=== PATIENT | male | born 1990 | race Caucasian/White ===

== ENCOUNTER 2016-08-30 01:11 | Emergency (ER) | payer BC ==
[2016-08-30 01:31] VITALS: BP 126/85
[2016-08-30] MEDS ORDERED: Metoclopramide 10 MG/2 ML SDV IVPUSH ONE (01:50)
[2016-08-30] MEDS ORDERED: HYDROmorphone 0.5 MG/0.5 ML Syringe IVPUSH ONE (01:51)
--- NOTE | 2016-08-30 01:52 | EDM.PDOC ---
ED HPI GI/ABDOMINAL - General Chief Complaint: Gastrointestinal Problem Stated Complaint: NAUSEA VOMITING Time Seen by Provider: 08/30/16 01:49 Source of Information: Reports: Patient, Family () History Limitations: Reports: No limitations - History of Present Illness INITIAL COMMENTS - FREE TEXT/NARRATIVE: 26-year-old male presents the ED with a history of intractable nausea and vomiting the last 4 hours. Patient states that he was out celebrating week but last night had 4 drinks 4 hours and soon as he got home he started having nausea and vomiting. He vomited up his anemia which is about 2030 hours last night. Subsequent it's been bilious emesis and dry heaves. Pain in the upper abdomen is mostly from vomiting. It does not radiate through to his back. There is no blood in the emesis. Interestingly he reports this seems to happen every time he has a few drinks of alcohol. Last time this occurred was about two years ago. He has no diarrhea ,fever or chills. No previous abdominal surgeries. Symptom Onset Date: 08/29/16 Symptom Onset Time: 22:00 Timing/Duration: Reports: Hour(s):, Gradual onset Location: other (Mostly epigastric pain discomfort.) Quality: Reports: ache, burning, stabbing Severity: moderate Improves with: Reports: vomiting Context: Reports: other (Drank alcohol last evening x4 drinks. Mostly hard apple cider.). Denies: sick contact, bad/questionable food, out of country travel, recent surgery, recent trauma, lifting, activity/exercise Associated Symptoms: Reports: loss of appetite, nausea/vomiting. 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) - Related Data Allergies/ADRs: Allergies Allergy/AdvReac Type Severity Reaction Status Date / Time No Known Allergies Allergy Verified 08/30/16 01:20 Home Meds: Home Meds Celecoxib [CeleBREX] 200 mg PO BID 12/03/14 [History] Hydrocodone/Acetaminophen [Hydrocodon-Acetaminoph 7.5-325] 1 tab PO Q4HR PRN [History] Penicillin V Potassium [Veetids] 500 mg PO TID 12/03/14 [History] Ondansetron [Zofran ODT] 4 mg PO Q6H #5 tab.dis 08/30/16 [Rx] Past Medical History - Past Health History Medical/Surgical History: Denies Medical/Surgical History Social & Family History - Tobacco Use Smoking Status *Q: Never Smoker Years of Tobacco use: 6 - Caffeine Use Caffeine Use: Reports: Soda - Recreational Drug Use Recreational Drug Use: No - Living Situation & Occupation Living situation: Reports: Occupation: employed ED ROS GENERAL - Review of Systems Review Of Systems: See Below Constitutional: Reports: chills, malaise, weakness, decreased appetite. Denies : fever, fatigue, weight loss HEENT: Reports: No symptoms Respiratory: Reports: No Symptoms Cardiovascular: Reports: No symptoms Endocrine: Reports: no symptoms GI/Abdominal: Reports: Abdominal pain (Mostly epigastric and mostly from vomiting so much.), Nausea, Vomiting : Reports: no symptoms Musculoskeletal: Reports: no symptoms Skin: Reports: no symptoms Neurological: Reports: No Symptoms Psychiatric: Reports: No symptoms Hematologic/Lymphatic: Reports: no symptoms Immunologic: Reports: no symptoms ED EXAM, GI/ABD - Physical Exam Exam: See Below Exam Limited By: No limitations General Appearance: alert, WD/WN, no apparent distress, other (Slightly pallid.) Eyes: bilateral: normal appearance Throat/Mouth: Normal inspection, Normal lips, Normal teeth, Normal oropharynx Head: atraumatic, normocephalic Neck: normal inspection, supple, non-tender, full range of motion Respiratory/Chest: no respiratory distress, lungs clear, normal breath sounds, no accessory muscle use Cardiovascular: normal peripheral pulses, regular rate, rhythm, no edema, no murmur GI/Abdominal: normal bowel sounds, soft, non tender, no organomegaly, no distention, no abnormal bruit, no mass Back Exam: normal inspection, full range of motion. No: CVA tenderness (L), CVA tenderness (R) Extremities: normal inspection, normal range of motion, non-tender, no pedal edema, normal capillary refill Neurological: oriented, CN II-XII intact, normal cognition, normal gait, normal reflexes, no motor/sensory deficits Psychiatric: normal affect, normal mood Skin Exam: Warm, Dry, Intact, Normal color, No rash, Pallor (Mild) Course - Vital Signs Last Recorded V/S: Last Vital Signs Temp 36.6 C 08/30/16 01:21 Pulse 65 08/30/16 01:21 Resp 16 08/30/16 01:21 BP 126/85 08/30/16 01:21 Pulse Ox 94 L 08/30/16 01:21 - Orders/Labs/Meds Labs: Laboratory Tests 08/30/16 08/30/16 Range/Units 01:50 01:50 WBC 9.15 H (4.23-9.07) K/mm3 RBC 4.54 L (4.63-6.08) M/mm3 Hgb 13.4 L (13.7-17.5) gm/L Hct 38.4 L (40.1-51.0) % MCV 84.6 (79.0-92.2) fl MCH 29.5 (25.7-32.2) pg MCHC 34.9 (32.2-35.5) g/dl RDW Std Deviation 39.7 (35.1-43.9) fL Plt Count 241 (163-337) K/mm3 MPV 8.8 L (9.4-12.3) fl Neutrophils % (Manual) 77 H (40-60) % Band Neutrophils % 0 (0-10) % Lymphocytes % (Manual) 18 L (20-40) % Atypical Lymphs % 0 % Monocytes % (Manual) 4 (2-10) % Eosinophils % (Manual) 1 (0.8-7.0) % Basophils % (Manual) 0 L (0.2-1.2) Platelet Estimate Adequate Plt Morphology Comment Normal RBC Morph Comment Normal Sodium 141 (136-145) mEq/L Potassium 4.0 (3.5-5.1) mEq/L Chloride 104 (98-107) mEq/L Carbon Dioxide 26 (21-32) mEq/L Anion Gap 15.0 (5-15) BUN 7 (7-18) mg/dL Creatinine 0.9 (0.7-1.3) mg/dL Est Cr Clr Drug Dosing TNP Estimated GFR (MDRD) > 60 (>60) mL/min BUN/Creatinine Ratio 7.8 L (14-18) Glucose 109 H (74-106) mg/dL Calcium 9.2 (8.5-10.1) mg/dL Total Bilirubin 2.9 H (0.2-1.0) mg/dL AST 19 (15-37) U/L ALT 19 (16-63) U/L Alkaline Phosphatase 55 (46-116) U/L C-Reactive Protein < 0.2 (<1.0) mg/dL Total Protein 7.7 (6.4-8.2) g/dl Albumin 4.6 (3.4-5.0) g/dl Globulin 3.1 gm/dL Albumin/Globulin Ratio 1.5 (1-2) Lipase 103 (73-393) U/L Meds: Medications Discontinued Medications Generic Name Dose Route Start Last Admin Trade Name Ashishq PRN Reason Stop Dose Admin Hydromorphone HCl 0.5 mg 08/30/16 01:51 08/30/16 02:07 Dilaudid IVPUSH 08/30/16 01:52 0.5 mg ONETIME ONE Administration Dextrose/Sodium Chloride 1,000 mls @ 999 mls/hr 08/30/16 02:00 08/30/16 02:12 Dextrose 5%-Normal Saline IV 999 mls/hr ASDIRECTED AMIRA Administration Metoclopramide HCl 7.5 mg 08/30/16 01:50 08/30/16 02:05 Reglan IVPUSH 08/30/16 01:51 7.5 mg ONETIME ONE Administration - Radiology Interpretation Free Text/Narrative:: 26-year-old male presents to the ED with intractable nausea and vomiting after being out for the evening last evening. He states he often develops spontaneous nausea and vomiting after having any kind of alcohol orally. He had 4 drinks of hard to couple spider last evening with his supper meal and started vomiting about 2200 hours. 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 No diarrhea. Does have diffuse epigastric pain and discomfort which is relieved by vomiting. He reports she's had upper GI endoscopy before has no peptic ulcer disease. I see from his med list that routine labs to include a serum lipase. 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 Plan IV D5 normal saline and opened. Given Reglan 7.5 mg IV Dilaudid 0.5 mg IV. - Re-Assessments/Exams Free Text/Narrative Re-Assessment/Exam: 08/30/16 02:30 patient reports nausea is much improved. He still had about 300 mils of fluid however. Objective at least 800 mils of the IV fluid. 08/30/16 02:31 l Lab work is essentially normal other than a bilirubin of 2.9. This would suggest that his Gilbert`s syndrome and a slow metabolism of bilirubin. I'm not sure if this is linked to intolerance to alcohol. 08/30/16 03:29 he has completed a full liter of IV fluids. He is feeling much improved. He'll be discharged home with 5 tablets of Zofran 4 mg sublingually to be used when necessary for nausea and vomiting relief. Utilized the [employer] machine for this as well. Discharged home in care of his . Departure - Departure Time of Disposition: 03:28 Disposition: Home, Self-Care 01 Condition: fair Clinical Impression: Gilbert syndrome Nausea and vomiting Qualifiers: Vomiting type: bilious vomiting Qualified Code(s): R11.14 - Bilious vomiting Prescriptions: Ondansetron [Zofran ODT] 4 mg PO Q6H #5 tab.dis Instructions: Nausea and Vomiting, Adult Referrals: Yeny Claros PA-C [Primary Care Provider] - Forms: ED Department Discharge Additional Instructions: Evaluation in the emergency department tonight in regards to intractable nausea and vomiting starting at 2200 hours last evening. As you suggested he seemed to current time he tried to drink any form of alcohol. Psych you are intolerant to the alcohol itself and no matter what formic comes in. Lab work done revealed an elevated serum bilirubin at 2.6 suggesting that you have a disorder called Gilbert`s syndrome. Dysphagia bilirubin is elevated at all times when you have your lab work checked. It means that you have a enzyme deficiency inability to break down bilirubin as fast as normal person. He is not aware by any means. I am unclear if there is an association between Gilbert syndrome and intolerance to alcohol use. Some people do black the enzyme to break down alcohol which is found in the liver of course. Penetrated with a liter of IV fluids while in the ED and medication Reglan 7.5 mg and Dilaudid 0.5 mg IV for nausea and vomiting and pain relief. Given a prescription for Zofran 4 mg tablet to be taken under the tongue when needed and can be taken up to every 6 hours to stop nausea and vomiting case this happens to you in the future. It may prevent you from having to come to the hospital.
[2016-08-30] MEDS ORDERED: Dextrose 5%-0.9% NaCl 1,000 ML IV SCH (02:00)
== END 2016-08-30 03:45 | disposition home or self-care (01) ==
LOC: JD.ED 01:11
DX: E80.4 Gilbert syndrome (principal)
CPT/HCPCS: 36415; 80053; 83690; 85025; 86140; 96361; 96374; 96375; 99284; J1170; J2765; J7042

== ENCOUNTER 2017-01-25 21:52 | Emergency (ER) | payer BC ==
[2017-01-25] MEDS ORDERED: Metoclopramide 10 MG/2 ML SDV IVPUSH STA (22:29)
[2017-01-25] MEDS ORDERED: Sodium Chloride 0.9% 1,000 ML IV ONE (22:29)
--- NOTE | 2017-01-25 22:45 | EDM.PDOC ---
ED HPI GENERAL MEDICAL PROBLEM - General Chief Complaint: Gastrointestinal Problem Stated Complaint: NAUSEA Time Seen by Provider: 01/25/17 22:09 Source of Information: Reports: Patient, RN Notes Reviewed History Limitations: Reports: No Limitations - History of Present Illness INITIAL COMMENTS - FREE TEXT/NARRATIVE: The patient states that he and his have been visiting family in [place], [place] since this past , 01/22/2017. The patient states that he developed nausea and vomiting, along with some epigastric discomfort, last night around 22 :00, shortly after learning that their 3-year-old dog was run over and killed in their absence. No recent fever or diarrhea. He states that he and his flew in from [place] this morning. He took 2 tablets of Dramamine 50 mg prior to getting on his first flight, then 2 more tablets about 2.5 hours later. He states that the Dramamine did seem to help. He then took 4 mg Zofran around 19: 30 tonight, which has not helped. The patient does not recall eating any spoiled food. No recent antibiotics. None of the patient's contacts have been similarly ill. The patient states that he has had similar episodes in the past, when he drinks alcohol, however, he states that he has not had any alcohol since 08/30/2016. He states that he underwent an EGD about 2 years ago, which was negative. The patient's PCP is Yeny Claros. 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: zofran, dramamine epigastric Pain Score (Numeric/FACES): 3 - Related Data Allergies Allergy/AdvReac Type Severity Reaction Status Date / Time No Known Allergies Allergy Verified 01/25/17 22:12 Home Meds: Home Meds Ondansetron [Zofran ODT] 4 mg PO Q6H #5 tab.dis 08/30/16 [Rx] Dimenhydrinate [Dramamine] 50 mg PO ASDIRECTED PRN 01/25/17 [History] Past Medical History - Past Surgical History HEENT Surgical History: Reports: Oral Surgery ([place] teeth extraction) GI Surgical History: Reports: EGD Social & Family History - Family History Family Medical History: Noncontributory - Tobacco Use Tobacco Use Within Last Twelve Months: Smokeless Tobacco (Chews about 1/2 can per day x 7 years) - Caffeine Use Caffeine Use: Reports: Soda - Alcohol Use Alcohol Use History: Yes Date/Time of Last Drink Comment: 08/30/2016 - Recreational Drug Use Recreational Drug Use: No - Living Situation & Occupation Living situation: Reports: , with Spouse 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) ED ROS GENERAL - Review of Systems Review Of Systems: See Below Constitutional: Reports: No Symptoms HEENT: Reports: No Symptoms Respiratory: Reports: No Symptoms Cardiovascular: Reports: No Symptoms Endocrine: Reports: No Symptoms GI/Abdominal: Reports: No Symptoms : Reports: No Symptoms Musculoskeletal: Reports: No Symptoms Skin: Reports: No Symptoms Neurological: Reports: No Symptoms Psychiatric: Reports: No Symptoms Hematologic/Lymphatic: Reports: No Symptoms Immunologic: Reports: No Symptoms ED EXAM, GI/ABD - Physical Exam Exam: See Below Exam Limited By: No Limitations General Appearance: Alert, WD/WN, No Apparent Distress Ears: Normal External Exam, Hearing Grossly Normal Nose: Normal Inspection, No Blood Throat/Mouth: Normal Inspection, Normal Lips, Normal Voice, No Airway Compromise Head: Atraumatic, Normocephalic Neck: Normal Inspection, Full Range of Motion Respiratory/Chest: No Respiratory Distress, Lungs Clear, Normal Breath Sounds, No Accessory Muscle Use Cardiovascular: Normal Peripheral Pulses, Regular Rate, Rhythm, No Gallop, No JVD, No Murmur, No Rub GI/Abdominal Exam: Normal Bowel Sounds, Soft, No Organomegaly, No Distention, No Abnormal Bruit, No Mass, Pelvis Stable, Tender (Epigastric region only, mild. Nontender elsewhere.) (Male) Exam: Deferred Rectal (Males) Exam: Deferred Back Exam: Normal Inspection, Full Range of Motion, NT Extremities: Normal Inspection, Normal Range of Motion, No Pedal Edema, Normal Capillary Refill Neurological: Alert, Oriented, Normal Cognition, No Motor/Sensory Deficits Psychiatric: Normal Affect, Normal Mood Skin Exam: Warm, Dry, Intact, Normal Color, No Rash Lymphatic: No Adenopathy Course - Vital Signs Last Recorded V/S: Last Vital Signs Temp 36.7 C 01/25/17 22:00 Pulse 57 L 01/25/17 22:00 Resp 18 01/25/17 22:00 BP 134/85 01/25/17 22:00 Pulse Ox 99 01/25/17 22:00 - Orders/Labs/Meds Labs: Laboratory Tests 01/25/17 01/25/17 01/25/17 Range/Units 22:45 22:45 22:45 WBC 11.60 H (4.23-9.07) K/mm3 RBC 4.49 L (4.63-6.08) M/mm3 Hgb 13.6 L (13.7-17.5) gm/L Hct 39.1 L (40.1-51.0) % MCV 87.1 (79.0-92.2) fl MCH 30.3 (25.7-32.2) pg MCHC 34.8 (32.2-35.5) g/dl RDW Std Deviation 41.6 (35.1-43.9) fL Plt Count 244 (163-337) K/mm3 MPV 9.0 L (9.4-12.3) fl Neutrophils % (Manual) 77 H (40-60) % Band Neutrophils % 0 (0-10) % Lymphocytes % (Manual) 15 L (20-40) % Atypical Lymphs % 3 % Monocytes % (Manual) 4 (2-10) % Eosinophils % (Manual) 0 L (0.8-7.0) % Basophils % (Manual) 1 (0.2-1.2) Toxic Granulation 1+ slight Platelet Estimate Adequate Plt Morphology Comment Normal Poikilocytosis 1+ slight Anisocytosis 1+ slight Microcytosis 1+ slight Macrocytosis 1+ slight Tear Drop Cells 1+ slight RBC Morph Comment Abnormal Sodium 142 (136-145) mEq/L Potassium 3.7 (3.5-5.1) mEq/L Chloride 105 (98-107) mEq/L Carbon Dioxide 29 (21-32) mEq/L Anion Gap 11.7 (5-15) BUN 9 (7-18) mg/dL Creatinine 1.1 (0.7-1.3) mg/dL Est Cr Clr Drug Dosing 92.37 mL/min Estimated GFR (MDRD) > 60 (>60) mL/min BUN/Creatinine Ratio 8.2 L (14-18) Glucose 113 H (74-106) mg/dL Calcium 9.8 (8.5-10.1) mg/dL Total Bilirubin 3.4 H (0.2-1.0) mg/dL AST 18 (15-37) U/L ALT 18 (16-63) U/L Alkaline Phosphatase 52 (46-116) U/L Total Protein 8.1 (6.4-8.2) g/dl Albumin 4.9 (3.4-5.0) g/dl Globulin 3.2 gm/dL Albumin/Globulin Ratio 1.5 (1-2) Lipase 110 (73-393) U/L Urine Color Yellow (Yellow) Urine Appearance Clear (Clear) Urine pH 7.0 (5.0-8.0) Ur Specific [place] 1.020 (1.005-1.030) Urine Protein 1+ H (Negative) Urine Glucose (UA) Negative (Negative) Urine Ketones Negative (Negative) Urine Occult Blood Negative (Negative) Urine Nitrite Negative (Negative) Urine Bilirubin 1+ H (Negative) Urine Urobilinogen 0.2 (0.2-1.0) Ur Leukocyte Esterase Negative (Negative) Urine RBC 0-5 (0-5) /hpf Urine WBC 0-5 (0-5) /hpf Ur Epithelial Cells Not seen (0-5) /hpf Urine Bacteria Few (FEW) /hpf Urine Mucus Many H (FEW) /hpf Urine Opiates Screen (NEGATIVE) Ur Buprenorphine Scrn (NEGATIVE) Ur Oxycodone Screen (NEGATIVE) Urine Methadone Screen (NEGATIVE) Ur Propoxyphene Screen (NEGATIVE) Ur Barbiturates Screen (NEGATIVE) Ur Tricyclics Screen (NEGATIVE) Ur Phencyclidine Scrn (NEGATIVE) Ur Amphetamine Screen (NEGATIVE) U Methamphetamines Scrn (NEGATIVE) U Benzodiazepines Scrn (NEGATIVE) U Cocaine Metab Screen (NEGATIVE) U Marijuana (THC) Screen (NEGATIVE) 01/25/17 Range/Units 22:45 WBC (4.23-9.07) K/mm3 RBC (4.63-6.08) M/mm3 Hgb (13.7-17.5) gm/L Hct (40.1-51.0) % MCV (79.0-92.2) fl MCH (25.7-32.2) pg MCHC (32.2-35.5) g/dl RDW Std Deviation (35.1-43.9) fL Plt Count (163-337) K/mm3 MPV (9.4-12.3) fl Neutrophils % (Manual) (40-60) % Band Neutrophils % (0-10) % Lymphocytes % (Manual) (20-40) % Atypical Lymphs % % Monocytes % (Manual) (2-10) % Eosinophils % (Manual) (0.8-7.0) % Basophils % (Manual) (0.2-1.2) Toxic Granulation Platelet Estimate Plt Morphology Comment Poikilocytosis Anisocytosis Microcytosis Macrocytosis Tear Drop Cells RBC Morph Comment Sodium (136-145) mEq/L Potassium (3.5-5.1) mEq/L Chloride (98-107) mEq/L Carbon Dioxide (21-32) mEq/L Anion Gap (5-15) BUN (7-18) mg/dL Creatinine (0.7-1.3) mg/dL Est Cr Clr Drug Dosing mL/min Estimated GFR (MDRD) (>60) mL/min BUN/Creatinine Ratio (14-18) Glucose (74-106) mg/dL Calcium (8.5-10.1) mg/dL Total Bilirubin (0.2-1.0) mg/dL AST (15-37) U/L ALT (16-63) U/L Alkaline Phosphatase (46-116) U/L Total Protein (6.4-8.2) g/dl Albumin (3.4-5.0) g/dl Globulin gm/dL Albumin/Globulin Ratio (1-2) Lipase (73-393) U/L Urine Color (Yellow) Urine Appearance (Clear) Urine pH (5.0-8.0) Ur Specific [place] (1.005-1.030) Urine Protein (Negative) Urine Glucose (UA) (Negative) Urine Ketones (Negative) Urine Occult Blood (Negative) Urine Nitrite (Negative) Urine Bilirubin (Negative) Urine Urobilinogen (0.2-1.0) Ur Leukocyte Esterase (Negative) Urine RBC (0-5) /hpf Urine WBC (0-5) /hpf Ur Epithelial Cells (0-5) /hpf Urine Bacteria (FEW) /hpf Urine Mucus (FEW) /hpf Urine Opiates Screen Negative (NEGATIVE) Ur Buprenorphine Scrn Negative (NEGATIVE) Ur Oxycodone Screen Negative (NEGATIVE) Urine Methadone Screen Negative (NEGATIVE) Ur Propoxyphene Screen Negative (NEGATIVE) Ur Barbiturates Screen Negative (NEGATIVE) Ur Tricyclics Screen Negative (NEGATIVE) Ur Phencyclidine Scrn Negative (NEGATIVE) Ur Amphetamine Screen Negative (NEGATIVE) U Methamphetamines Scrn Negative (NEGATIVE) U Benzodiazepines Scrn Negative (NEGATIVE) U Cocaine Metab Screen Negative (NEGATIVE) U Marijuana (THC) Screen Negative (NEGATIVE) Meds: Medications Discontinued Medications Generic Name Dose Route Start Last Admin Trade Name Tony PRN Reason Stop Dose Admin Sodium Chloride 1,000 mls @ 999 mls/hr 01/25/17 22:29 01/25/17 22:49 Normal Saline IV 01/25/17 23:29 999 mls/hr ONETIME ONE Administration Metoclopramide HCl 10 mg 01/25/17 22:29 01/25/17 22:49 Reglan IVPUSH 01/25/17 22:30 10 mg ONETIME STA Administration - Re-Assessments/Exams Free Text/Narrative Re-Assessment/Exam: 01/25/17 23:40 The patient states that he is feeling better following IV fluid and Reglan. His workup tonight is unremarkable. His mildly elevated WBC count appears to be due to demargination, not infection. His electrolytes are normal. His total bilirubin is elevated at 3.4, but was elevated at 2.9 when he was last here on . He most likely has Gilbert syndrome. Even though the Zofran did not seem to work for the patient when he took it earlier today, it has the fewest side effects, therefore I am recommending that he continue to take it during the day, and continue to take Dramamine at night. I am recommending that if his symptoms persist for the next couple of days, that he follow-up with his PCP, Yeny Claros. Departure - Departure Time of Disposition: 23:42 Disposition: Home, Self-Care 01 Condition: Good Clinical Impression: Gilbert syndrome Nausea and vomiting Qualifiers: Vomiting type: bilious vomiting Qualified Code(s): R11.14 - Bilious vomiting - Discharge Information Referrals: Yeny Claros PA-C [Primary Care Provider] - Forms: ED Department Discharge Additional Instructions: You were seen in the emergency room for nausea and vomiting since last night. Workup in the ER included blood work and urine tests. Your workup was unremarkable, except for elevated bilirubin, which was also present when you were last seen in the ED on 08/30/2016. You likely have a condition called Gilbert's syndrome. We recommend that you continue to take the anti-nausea medicine Zofran during the day, and diphenhydramine at night. We recommend you stay well hydrated - Gatorade is best. We recommend you take a bland diet, such as oatmeal, rice, applesauce, toast, etc. If your symptoms persist for more than a couple of days, we recommend you follow -up with your PCP, Yeny Claros. If any other problems, please do not hesitate to return to the ER.
[2017-01-26 00:16] VITALS: BP 116/74
== END 2017-01-25 23:55 | disposition home or self-care (01) ==
LOC: JD.ED 21:52
DX: E80.4 Gilbert syndrome (principal); R11.14 Bilious vomiting
CPT/HCPCS: 36415; 80053; 80306; 81001; 83690; 85025; 96361; 96374; 99284; J2765; J7040

== ENCOUNTER 2017-01-28 03:53 | Emergency (ER) | payer BC ==
[2017-01-28 04:01] VITALS: BP 139/70
[2017-01-28] MEDS ORDERED: HYDROmorphone 1 MG/ML Syringe IVPUSH STA (04:22)
[2017-01-28] MEDS ORDERED: Sodium Chloride 0.9% 1,000 ML IV SCH (04:30)
--- NOTE | 2017-01-28 04:31 | EDM.PDOC ---
ED HPI GENERAL MEDICAL PROBLEM - General Chief Complaint: Abdominal Pain Stated Complaint: STOMACH PAIN & NAUS Time Seen by Provider: 01/28/17 04:12 Source of Information: Reports: Patient, Family ([id number]), Old Records, RN Notes Reviewed History Limitations: Reports: No Limitations - History of Present Illness INITIAL COMMENTS - FREE TEXT/NARRATIVE: The patient was seen by me in this ED 3 days ago, 01/25/2017, with a complaint of nausea, vomiting, and some epigastric pain that had developed the evening of 01/24/2017. The patient had just returned from [facility] that morning. He was taking Dramamine, which seemed to help, and Zofran, which did not seem to help much. He had mild epigastric tenderness to palpation of the abdomen, with no tenderness elsewhere. Workup included a CBC, CMP, lipase level , urinalysis, and urine drug screen. His WBC returned mildly elevated at 11.60 with 0% bandemia. His CMP was remarkable only for an elevated total bilirubin of 3.4, with the remainder of the CMP being unremarkable. Review of prior medical records found that the patient has a history of elevated total bilirubin , likely due to Gilbert syndrome. The patient's lipase was normal at 110. His urinalysis was normal, as was his urine drug screen. He felt better after IV fluid and IV Zofran. He was discharged home with a prescription for Zofran, and the recommendation that if his symptoms persisted for the next couple of days, that he follow-up with his PCP. The patient states that he followed up with his PCP, Yeny Claros, yesterday afternoon. He states that no tests were done, although he did receive IV fluid and IV Zofran. He was prescribed Zofran 8 mg, pantoprazole, and trazodone. The patient states that his symptoms have persisted. No recent fever, constipation, diarrhea, or urinary symptoms. Middle Abdominal Pain Score (Numeric/FACES): 8 - Related Data Allergies Allergy/AdvReac Type Severity Reaction Status Date / Time No Known Allergies Allergy Verified 01/28/17 04:01 Home Meds: Home Meds Ondansetron [Zofran ODT] 4 mg PO Q6H #5 tab.dis 08/30/16 [Rx] Past Medical History - Past Surgical History HEENT Surgical History: Reports: Oral Surgery ([place] teeth extraction) GI Surgical History: Reports: Colonoscopy, EGD Social & Family History - Family History Family Medical History: Noncontributory - Tobacco Use Smoking Status *Q: Never Smoker Tobacco Use Within Last Twelve Months: Smokeless Tobacco (She was about 1/2 can per day x 7 years) - Caffeine Use Caffeine Use: Reports: Soda - Alcohol Use Alcohol Use History: Yes Date/Time of Last Drink Comment: 08/30/2016 - Recreational Drug Use Recreational Drug Use: No - Living Situation & Occupation Living situation: Reports: , with Spouse 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 Denies: Constipation, Diarrhea : Reports: No Symptoms. Denies: Dysuria Musculoskeletal: Reports: No Symptoms Skin: Reports: No Symptoms Neurological: Reports: No Symptoms Psychiatric: Reports: No Symptoms Hematologic/Lymphatic: Reports: No Symptoms Immunologic: Reports: No Symptoms ED EXAM, GI/ABD - Physical Exam Exam: See Below Exam Limited By: No Limitations General Appearance: Alert, WD/WN, No Apparent Distress Eyes: Bilateral: Normal Appearance, EOMI Ears: Normal External Exam, Hearing Grossly Normal Nose: Normal Inspection, No Blood Throat/Mouth: Normal Inspection, Normal Lips, Normal Voice, No Airway Compromise Head: Atraumatic, Normocephalic Neck: Normal Inspection, Full Range of Motion Respiratory/Chest: No Respiratory Distress, Lungs Clear, Normal Breath Sounds, No Accessory Muscle Use Cardiovascular: Normal Peripheral Pulses, Regular Rate, Rhythm, No Gallop, No JVD, No Murmur, No Rub GI/Abdominal Exam: Normal Bowel Sounds, Soft, No Organomegaly, No Distention, No Abnormal Bruit, No Mass, Tender (Primarily in the epigastric region. Less tender in the right upper quadrant. Essentially nontender elsewhere.) (Male) Exam: Deferred Rectal (Males) Exam: Deferred Back Exam: Normal Inspection, Full Range of Motion. No: CVA Tenderness (L), CVA Tenderness (R) Extremities: Normal Inspection, Normal Range of Motion, No Pedal Edema, Normal Capillary Refill Neurological: Alert, Oriented, Normal Cognition, No Motor/Sensory Deficits Psychiatric: Normal Affect Skin Exam: Warm, Dry, Intact, Normal Color, No Rash Lymphatic: No Adenopathy Course - Vital Signs Last Recorded V/S: Last Vital Signs Temp 36.7 C 01/28/17 03:58 Pulse 76 01/28/17 03:58 Resp 16 01/28/17 03:58 BP 139/70 01/28/17 03:58 Pulse Ox 100 01/28/17 03:58 - Orders/Labs/Meds Orders: Active Orders 24 hr Category Date Time Status Sodium Chloride 0.9% [Normal Saline] 1,000 ml Med 01/28/17 04:30 Active IV ASDIRECTED Medication Orders Sodium Chloride (Normal Saline) 1,000 mls @ 150 mls/hr IV ASDIRECTED AMIRA Last Admin: 01/28/17 04:30 Dose: 150 mls/hr Labs: Laboratory Tests 01/28/17 01/28/17 01/28/17 Range/Units 04:30 04:30 06:12 WBC 6.75 (4.23-9.07) K/mm3 RBC 4.38 L (4.63-6.08) M/mm3 Hgb 13.3 L (13.7-17.5) gm/L Hct 37.4 L (40.1-51.0) % MCV 85.4 (79.0-92.2) fl MCH 30.4 (25.7-32.2) pg MCHC 35.6 H (32.2-35.5) g/dl RDW Std Deviation 39.1 (35.1-43.9) fL Plt Count 230 (163-337) K/mm3 MPV 9.0 L (9.4-12.3) fl Neutrophils % (Manual) 66 H (40-60) % Band Neutrophils % 0 (0-10) % Lymphocytes % (Manual) 22 (20-40) % Atypical Lymphs % 1 % Monocytes % (Manual) 11 H (2-10) % Eosinophils % (Manual) 0 L (0.8-7.0) % Basophils % (Manual) 0 L (0.2-1.2) Platelet Estimate Adequate Plt Morphology Comment Normal RBC Morph Comment Normal Sodium 141 (136-145) mEq/L Potassium 4.0 (3.5-5.1) mEq/L Chloride 104 (98-107) mEq/L Carbon Dioxide 27 (21-32) mEq/L Anion Gap 14.0 (5-15) BUN 10 (7-18) mg/dL Creatinine 1.2 (0.7-1.3) mg/dL Est Cr Clr Drug Dosing TNP Estimated GFR (MDRD) > 60 (>60) mL/min BUN/Creatinine Ratio 8.3 L (14-18) Glucose 107 H (74-106) mg/dL Calcium 9.7 (8.5-10.1) mg/dL Total Bilirubin 4.8 H (0.2-1.0) mg/dL AST 19 (15-37) U/L ALT 21 (16-63) U/L Alkaline Phosphatase 45 L (46-116) U/L Total Protein 7.4 (6.4-8.2) g/dl Albumin 4.5 (3.4-5.0) g/dl Globulin 2.9 gm/dL Albumin/Globulin Ratio 1.6 (1-2) Lipase 114 (73-393) U/L Urine Color Yellow (Yellow) Urine Appearance Clear (Clear) Urine pH 7.0 (5.0-8.0) Ur Specific [place] 1.010 (1.005-1.030) Urine Protein Negative (Negative) Urine Glucose (UA) Negative (Negative) Urine Ketones Negative (Negative) Urine Occult Blood Negative (Negative) Urine Nitrite Negative (Negative) Urine Bilirubin Negative (Negative) Urine Urobilinogen 0.2 (0.2-1.0) Ur Leukocyte Esterase Negative (Negative) Urine RBC Not seen (0-5) /hpf Urine WBC 0-5 (0-5) /hpf Ur Epithelial Cells Not seen (0-5) /hpf Urine Bacteria Not seen (FEW) /hpf Urine Mucus Few (FEW) /hpf Meds: Medications Generic Name Dose Route Start Last Admin Trade Name Freq PRN Reason Stop Dose Admin Sodium Chloride 1,000 mls @ 150 mls/hr 01/28/17 04:30 01/28/17 04:30 Normal Saline IV 150 mls/hr ASDIRECTED AMIRA Administration Discontinued Medications Generic Name Dose Route Start Last Admin Trade Name Freq PRN Reason Stop Dose Admin Diatrizoate Meglum/Diatrizoate Sod 90 ml 01/28/17 06:23 01/28/17 06:24 Gastrografin 37% PO 01/28/17 06:24 90 ml ONETIME ONE Administration Hydromorphone HCl 0.5 mg 01/28/17 04:22 01/28/17 04:30 Dilaudid IVPUSH 01/28/17 04:23 0.5 mg ONETIME STA Administration Iopamidol 125 ml 01/28/17 06:23 01/28/17 06:24 Isovue-300 (61%) IVPUSH 01/28/17 06:24 125 ml ONETIME ONE Administration Metoclopramide HCl 10 mg 01/28/17 06:16 01/28/17 06:20 Reglan IVPUSH 01/28/17 06:17 10 mg NOW STA Administration - Re-Assessments/Exams Free Text/Narrative Re-Assessment/Exam: 01/28/17 06:47 CT of the abdomen and pelvis with oral and IV contrast is read by Dr. Becerra as: 1. Nothing acute is identified on CT study of the abdomen and pelvis. 01/28/17 06:52 Test results discussed with the patient and his [id number]. Today's workup is entirely unremarkable, and does not explain the cause of the patient's pain. Once again, the patient's total bilirubin is elevated at 4.8, with no elevation of other LFTs. He likely has Gilbert syndrome. I will refer the patient to Dr. Caraballo for further evaluation that may include an EGD and/or colonoscopy. I advised the patient to take no more than 1 tablet of Zofran 8 mg every 8 hours. Departure - Departure Time of Disposition: 06:53 Disposition: Home, Self-Care 01 Condition: Good Clinical Impression: Epigastric abdominal pain of unknown etiology, Nausea and vomiting, Gilbert syndrome - Discharge Information Referrals: Yeny Claros PA-C [Primary Care Provider] - Owen Caraballo MD [Physician] - Forms: ED Department Discharge Additional Instructions: You were seen in the emergency room for continued upper abdominal pain, nausea, and vomiting. Workup in the ER included blood work, a urinalysis, and a CT scan of your abdomen and pelvis. Your entire workup was unremarkable, and does not explain the cause of your symptoms. We recommend you follow-up with the Surgeon Dr. Caraballo at the next available appointment, for further evaluation, which may include an EGD and/or colonoscopy. If you continue to take Zofran 8 mg, do not take more than one tablet every 8 hours. Stay well hydrated. Eat a bland diet, such as oatmeal, rice, applesauce, toast, etc. If any other problems, please do not hesitate to return to the ER. - My Orders Last 24 Hours: My Active Orders 01/28/17 04:30 Sodium Chloride 0.9% [Normal Saline] 1,000 ml IV ASDIRECTED - Assessment/Plan Last 24 Hours: My Active Orders 01/28/17 04:30 Sodium Chloride 0.9% [Normal Saline] 1,000 ml IV ASDIRECTED
[2017-01-28] MEDS ORDERED: Metoclopramide 10 MG/2 ML SDV IVPUSH STA (06:16)
[2017-01-28] MEDS ORDERED: Diatrizoate Meglumine/Diatrizoate Sodium 37% 120 ML Bottle PO ONE (06:23)
[2017-01-28] MEDS ORDERED: Iopamidol 612 MG/ML 150 ML Bottle IVPUSH ONE (06:23)
--- NOTE | 2017-01-28 06:41 | CT ---
CT abdomen and pelvis Technique: Multiple axial sections were obtained from above the dome of the diaphragm inferiorly through the pubic symphysis. Intravenous and oral contrast was utilized. Delayed images were obtained through the bladder. Comparison: No previous study. Findings: Visualized lung bases shows nothing acute. Liver shows no focal parenchymal abnormality. Spleen appears within normal limits. Adrenal glands show no nodule. Pancreas is within normal limits. Gallbladder shows no calcified gallstones. Kidneys show symmetric contrast enhancement without hydronephrosis or mass. Aorta shows no aneurysmal dilatation with no retroperitoneal adenopathy being seen. No pelvic mass or adenopathy is identified. Delayed images shows contrast within the distal ureters and within the bladder. Appendix not definitely visualized. No free fluid or inflammatory change is seen. No bowel dilatation is seen. Bone window settings were reviewed which appears within normal limits for the patient's age. Impression: 1. Nothing acute is identified on CT study of the abdomen and pelvis. Diagnostic code #1
== END 2017-01-28 07:00 | disposition home or self-care (01) ==
LOC: JD.ED 03:53
DX: R10.13 Epigastric pain (principal); R11.2 Nausea with vomiting, unspecified; E80.4 Gilbert syndrome; Z98.890 Other specified postprocedural states
CPT/HCPCS: 36415; 74177; 80053; 81001; 83690; 85025; 96361; 96374; 96375; 99284; J1170; J2765; J7040; Q9963; Q9967; 99283

== ENCOUNTER 2017-03-13 23:31 | Emergency (ER) | payer BC ==
[2017-03-13 23:40] VITALS: BP 131/84
[2017-03-14] MEDS ORDERED: Ondansetron 4 MG/2 ML SDV IVPUSH ONE (00:05)
[2017-03-14] MEDS ORDERED: Sodium Chloride 0.9% 1,000 ML IV SCH (00:15)
--- NOTE | 2017-03-14 00:43 | EDM.PDOC ---
ED HPI GENERAL MEDICAL PROBLEM - General Chief Complaint: Gastrointestinal Problem Stated Complaint: NAUSEA/VOMITING/DIARRHEA Time Seen by Provider: 03/13/17 23:40 Source of Information: Reports: Patient, Old Records, RN Notes Reviewed History Limitations: Reports: No Limitations - History of Present Illness INITIAL COMMENTS - FREE TEXT/NARRATIVE: The patient states that he developed nausea, vomiting, watery diarrhea, shakiness, hyperventilation, lightheadedness, unsteadiness on his feet, and tingling of his hands suddenly at 21:00. No abdominal pain. No fever or urinary symptoms. No recent spoiled food. No recent antibiotics. No recent travel outside of the country, and no one else in the patient's household or at work with similar symptoms, as far as the patient knows. The patient has had similar symptoms, usually related to drinking alcohol - after only a few drinks, the patient usually gets violently ill. His last alcoholic beverage was on 08/30/2016. The patient was seen by me in this ED on 01/25/2017 and 01/28/2017 for nausea, vomiting, and epigastric pain. 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 the patient states that he followed up with his PCP, Yeny Claros, on 01/29/2017, who felt that the patient was suffering from anxiety. She prescribed Ativan 0.5 mg TID prn anxiety. He states that he took the Ativan 3 times a day for the first couple of days, which significantly helped his symptoms. He has significantly decreased the dosage since, although took one tonight around 22:15. It has not helped his symptoms tonight, thus far. The patient notes that he accidentally missed a dose of Cymbalta last night, and missed his Protonix this morning. Upper Abdomen Pain Score (Numeric/FACES): 4 - Related Data Allergies Allergy/AdvReac Type Severity Reaction Status Date / Time No Known Allergies Allergy Verified 01/28/17 04:01 Home Meds: Home Meds DULoxetine [Cymbalta] 30 mg PO DAILY 03/13/17 [History] LORazepam [Ativan] 0.5 mg PO TID 03/13/17 [History] Pantoprazole Sodium [Protonix] 20 mg PO DAILY 03/13/17 [History] Past Medical History Gastrointestinal History: Reports: GERD Psychiatric History: Reports: Anxiety - Past Surgical History HEENT Surgical History: Reports: Oral Surgery ([place] teeth extraction) GI Surgical History: Reports: Colonoscopy, EGD Social & Family History - Family History Family Medical History: Noncontributory - Tobacco Use Smoking Status *Q: Never Smoker Tobacco Use Within Last Twelve Months: Snuff/Dip (1/2 can x 10 years, although recently quit) Second Hand Smoke Exposure: No - Caffeine Use Caffeine Use: Reports: Soda (Usually 6 to 8 cans/day, but has decreased to 20 oz /day) - Recreational Drug Use Recreational Drug Use: No - Living Situation & Occupation Living situation: Reports: , with Spouse 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) ED ROS GENERAL - Review of Systems Review Of Systems: See Below Constitutional: Reports: No Symptoms HEENT: Reports: No Symptoms Respiratory: Reports: No Symptoms Cardiovascular: Reports: No Symptoms Endocrine: Reports: No Symptoms GI/Abdominal: Reports: No Symptoms : Reports: No Symptoms Musculoskeletal: Reports: No Symptoms Skin: Reports: No Symptoms Neurological: Reports: No Symptoms Psychiatric: Reports: No Symptoms Hematologic/Lymphatic: Reports: No Symptoms Immunologic: Reports: No Symptoms ED EXAM, GENERAL - Physical Exam Exam: See Below Exam Limited By: No Limitations General Appearance: Alert, WD/WN, Anxious Eye Exam: Bilateral Eye: Normal Inspection Ears: Normal External Exam, Hearing Grossly Normal Nose: Normal Inspection, No Blood Throat/Mouth: Normal Inspection, Normal Lips, Normal Voice, No Airway Compromise Head: Atraumatic, Normocephalic Neck: Normal Inspection, Full Range of Motion Respiratory/Chest: No Respiratory Distress, Lungs Clear, Normal Breath Sounds, No Accessory Muscle Use Cardiovascular: Normal Peripheral Pulses, Regular Rate, Rhythm, No Gallop, No JVD, No Murmur, No Rub Peripheral Pulses: 4+: Radial (L), Radial (R) GI/Abdominal: Normal Bowel Sounds, Soft, Non-Tender, No Organomegaly, No Distention, No Abnormal Bruit, No Mass (Male) Exam: Deferred Rectal (Males) Exam: Deferred Back Exam: Normal Inspection, Full Range of Motion, NT Extremities: Normal Inspection, Normal Range of Motion, No Pedal Edema, Normal Capillary Refill Neurological: Alert, Oriented, Normal Cognition, No Motor/Sensory Deficits Psychiatric: Normal Affect, Anxious Skin Exam: Warm, Dry, Intact, Normal Color, No Rash EKG INTERPRETATION EKG Date: 03/14/17 Time: 00:19 Rhythm: NSR Rate (Beats/Min): 60 [place]: Normal P-Wave: Present QRS: Normal ST-T: Normal QT: Normal Comparison: NA - No Prior EKG Course - Vital Signs Last Recorded V/S: Last Vital Signs Temp 36.7 C 03/13/17 23:37 Pulse 84 03/13/17 23:37 Resp 19 03/13/17 23:37 BP 131/84 03/13/17 23:37 Pulse Ox 100 03/13/17 23:37 Orthostatic Blood Pressure [ 131/86 Standing] Orthostatic Blood Pressure [ 132/88 Sitting] Orthostatic Blood Pressure [ 125/75 Supine] - Orders/Labs/Meds Orders: Active Orders 24 hr Category Date Time Status EKG Documentation Completion [RC] STAT Care 03/14/17 00:03 Active Orthostatic Vital Signs [RC] STAT Care 03/14/17 00:03 Active Chest 2V [CR] Stat Exams 03/14/17 00:03 Taken Sodium Chloride 0.9% [Normal Saline] 1,000 ml Med 03/14/17 00:15 Active IV ASDIRECTED Medication Orders Sodium Chloride (Normal Saline) 1,000 mls @ 150 mls/hr IV ASDIRECTED AMIRA Last Admin: 03/14/17 00:36 Dose: 150 mls/hr Labs: Laboratory Tests 03/14/17 03/14/17 03/14/17 Range/Units 00:03 00:30 00:30 WBC 12.92 H (4.23-9.07) K/mm3 RBC 4.44 L (4.63-6.08) M/mm3 Hgb 13.5 L (13.7-17.5) gm/L Hct 38.6 L (40.1-51.0) % MCV 86.9 (79.0-92.2) fl MCH 30.4 (25.7-32.2) pg MCHC 35.0 (32.2-35.5) g/dl RDW Std Deviation 40.5 (35.1-43.9) fL Plt Count 254 (163-337) K/mm3 MPV 8.8 L (9.4-12.3) fl Neutrophils % (Manual) 76 H (40-60) % Band Neutrophils % 0 (0-10) % Lymphocytes % (Manual) 19 L (20-40) % Atypical Lymphs % 0 % Monocytes % (Manual) 4 (2-10) % Eosinophils % (Manual) 1 (0.8-7.0) % Basophils % (Manual) 0 L (0.2-1.2) Platelet Estimate Adequate RBC Morph Comment Normal PT 10.8 (8.0-13.0) SECONDS INR 0.99 APTT 27 (22-36) SECONDS D-Dimer, Quantitative < 0.19 L (0.19-0.59) mg/L Puncture Site Rt radial ABG pH 7.53 H (7.35-7.45) ABG pCO2 23.9 L (35.0-45.0) mmHg ABG pO2 94.0 (80.0-100.0) mmHg ABG HCO3 20.0 L (22.0-26.0) meq/L ABG O2 Saturation 98.8 H (96.0-97.0) % ABG Base Excess -0.9 (-2-2.0) A-a Gradient 11 mmHg O2 Delivery Device Room air FiO2 21.00 (21.00-100.00) % Sodium (136-145) mEq/L Potassium (3.5-5.1) mEq/L Chloride (98-107) mEq/L Carbon Dioxide (21-32) mEq/L Anion Gap (5-15) BUN (7-18) mg/dL Creatinine (0.7-1.3) mg/dL Est Cr Clr Drug Dosing Estimated GFR (MDRD) (>60) mL/min BUN/Creatinine Ratio (14-18) Glucose (74-106) mg/dL Calcium (8.5-10.1) mg/dL Magnesium (1.8-2.4) mg/dl Total Bilirubin (0.2-1.0) mg/dL AST (15-37) U/L ALT (16-63) U/L Alkaline Phosphatase (46-116) U/L NT-Pro-B Natriuret Pep (0-125) pg/mL Total Protein (6.4-8.2) g/dl Albumin (3.4-5.0) g/dl Globulin gm/dL Albumin/Globulin Ratio (1-2) TSH 3rd Generation (0.358-3.74) uIU/mL Urine Color (Yellow) Urine Appearance (Clear) Urine pH (5.0-8.0) Ur Specific [place] (1.005-1.030) Urine Protein (Negative) Urine Glucose (UA) (Negative) Urine Ketones (Negative) Urine Occult Blood (Negative) Urine Nitrite (Negative) Urine Bilirubin (Negative) Urine Urobilinogen (0.2-1.0) Ur Leukocyte Esterase (Negative) Urine RBC (0-5) /hpf Urine WBC (0-5) /hpf Ur Epithelial Cells (0-5) /hpf Urine Bacteria (FEW) /hpf Urine Mucus (FEW) /hpf 03/14/17 03/14/17 Range/Units 00:30 00:35 WBC (4.23-9.07) K/mm3 RBC (4.63-6.08) M/mm3 Hgb (13.7-17.5) gm/L Hct (40.1-51.0) % MCV (79.0-92.2) fl MCH (25.7-32.2) pg MCHC (32.2-35.5) g/dl RDW Std Deviation (35.1-43.9) fL Plt Count (163-337) K/mm3 MPV (9.4-12.3) fl Neutrophils % (Manual) (40-60) % Band Neutrophils % (0-10) % Lymphocytes % (Manual) (20-40) % Atypical Lymphs % % Monocytes % (Manual) (2-10) % Eosinophils % (Manual) (0.8-7.0) % Basophils % (Manual) (0.2-1.2) Platelet Estimate RBC Morph Comment PT (8.0-13.0) SECONDS INR APTT (22-36) SECONDS D-Dimer, Quantitative (0.19-0.59) mg/L Puncture Site ABG pH (7.35-7.45) ABG pCO2 (35.0-45.0) mmHg ABG pO2 (80.0-100.0) mmHg ABG HCO3 (22.0-26.0) meq/L ABG O2 Saturation (96.0-97.0) % ABG Base Excess (-2-2.0) A-a Gradient mmHg O2 Delivery Device FiO2 (21.00-100.00) % Sodium 142 (136-145) mEq/L Potassium 3.2 L (3.5-5.1) mEq/L Chloride 105 (98-107) mEq/L Carbon Dioxide 23 (21-32) mEq/L Anion Gap 17.2 H (5-15) BUN 10 (7-18) mg/dL Creatinine 1.1 (0.7-1.3) mg/dL Est Cr Clr Drug Dosing TNP Estimated GFR (MDRD) > 60 (>60) mL/min BUN/Creatinine Ratio 9.1 L (14-18) Glucose 119 H (74-106) mg/dL Calcium 9.6 (8.5-10.1) mg/dL Magnesium 1.7 L (1.8-2.4) mg/dl Total Bilirubin 1.3 H (0.2-1.0) mg/dL AST 21 (15-37) U/L ALT 24 (16-63) U/L Alkaline Phosphatase 59 (46-116) U/L NT-Pro-B Natriuret Pep 42 (0-125) pg/mL Total Protein 7.6 (6.4-8.2) g/dl Albumin 4.3 (3.4-5.0) g/dl Globulin 3.3 gm/dL Albumin/Globulin Ratio 1.3 (1-2) TSH 3rd Generation 3.561 (0.358-3.74) uIU/mL Urine Color Yellow (Yellow) Urine Appearance Clear (Clear) Urine pH 8.5 H (5.0-8.0) Ur Specific [place] 1.020 (1.005-1.030) Urine Protein Negative (Negative) Urine Glucose (UA) Negative (Negative) Urine Ketones Negative (Negative) Urine Occult Blood Negative (Negative) Urine Nitrite Negative (Negative) Urine Bilirubin Negative (Negative) Urine Urobilinogen 0.2 (0.2-1.0) Ur Leukocyte Esterase Negative (Negative) Urine RBC Not seen (0-5) /hpf Urine WBC Not seen (0-5) /hpf Ur Epithelial Cells Not seen (0-5) /hpf Urine Bacteria Not seen (FEW) /hpf Urine Mucus Not seen (FEW) /hpf Meds: Medications Generic Name Dose Route Start Last Admin Trade Name Tony PRN Reason Stop Dose Admin Sodium Chloride 1,000 mls @ 150 mls/hr 03/14/17 00:15 03/14/17 00:36 Normal Saline IV 150 mls/hr ASDIRECTED AMIRA Administration Discontinued Medications Generic Name Dose Route Start Last Admin Trade Name Tony PRN Reason Stop Dose Admin Ondansetron HCl 4 mg 03/14/17 00:05 03/14/17 00:37 Zofran IVPUSH 03/14/17 00:06 4 mg ONETIME ONE Administration - Re-Assessments/Exams Free Text/Narrative Re-Assessment/Exam: 03/14/17 00:14 The ABG represents an acute on chronic respiratory alkalosis. Two-view chest radiograph appears to be grossly normal. Cardiac silhouette is within normal limits. No pulmonary vascular congestion. No pleural effusions. No focal infiltrate. No pneumothorax. Formal read per the Radiologist pending. 03/14/17 00:35 The patient is not orthostatic. 03/14/17 01:54 Test results were reviewed with the patient. The patient appears to be suffering from hyperventilation syndrome, almost certainly due to anxiety/panic attack, as other known causes of hyperventilation have been ruled out. The patient is currently being treated for anxiety with Cymbalta, which he has been on for approximately 6 weeks. He may require dose adjustment, or, potentially, a switch to a different SSRI. I am recommending that he follow up with his PCP, Yeny Claros, to discuss this, but in the meantime, continue to take his Cymbalta as prescribed. I advised the patient that if he takes Ativan, that he not drive or operate heavy machinery. The patient states that he has Zofran at home and does not need an additional prescription. Departure - Departure Time of Disposition: 01:56 Disposition: Home, Self-Care 01 Condition: Good Clinical Impression: Hyperventilation syndrome, Panic attack - Discharge Information Referrals: Yeny Claros PA-C [Primary Care Provider] - Forms: ED Department Discharge Additional Instructions: You were seen in the emergency room for nausea, vomiting, watery diarrhea, sweatiness, shakiness, heavy breathing, lightheadedness, unsteadiness, and tingling of your hands. Workup in the ER included blood work, an arterial blood gas, an ECG, a chest x- ray, and positional blood pressure checks. Your workup proved that your symptoms are caused by severe hyperventilation. Known causes of hyperventilation, such as metabolic acidosis, hypocalcemia, hypoglycemia, hyperthyroidism, liver failure, severe anemia, sepsis, acute coronary event, pneumothorax, pneumonia, dysrhythmia, PE, and CHF have all been ruled out. By a process of elimination, the cause of your hyperventilation appears to be a panic attack. You are already being treated for anxiety disorder with Cymbalta. The dosage may need adjustment, or, potentially, you may need to be switched to a different SSRI. Discuss this with your PCP, Yeny Claros, at the next available appointment. Be aware that if you take Ativan, you cannot drive or operate heavy machinery for 12 hours afterwards. Take your previously prescribed Zofran as needed for nausea/vomiting. If any other problems, please do not hesitate to return to the ER. - My Orders Last 24 Hours: My Active Orders 03/14/17 00:03 EKG Documentation Completion [RC] STAT Orthostatic Vital Signs [RC] STAT Chest 2V [CR] Stat 03/14/17 00:15 Sodium Chloride 0.9% [Normal Saline] 1,000 ml IV ASDIRECTED - Assessment/Plan Last 24 Hours: My Active Orders 03/14/17 00:03 EKG Documentation Completion [RC] STAT Orthostatic Vital Signs [RC] STAT Chest 2V [CR] Stat 03/14/17 00:15 Sodium Chloride 0.9% [Normal Saline] 1,000 ml IV ASDIRECTED
--- NOTE | 2017-03-16 10:26 | CR ---
Chest: Two views of the chest were obtained. Comparison: No prior study. Heart size and mediastinum are within normal limits. Lungs are clear. Bony structures are unremarkable for the patient's age. Impression: 1. Nothing acute is identified on two-view chest x-ray. Diagnostic code #1
== END 2017-03-14 02:30 | disposition home or self-care (01) ==
LOC: JD.ED 23:31
DX: F45.8 Other somatoform disorders (principal); F41.0 Panic disorder [episodic paroxysmal anxiety]; K21.9 Gastro-esophageal reflux disease without esophagitis; Z79.899 Other long term (current) drug therapy
CPT/HCPCS: 36415; 36600; 71020; 80053; 81001; 82803; 83735; 83880; 84443; 85025; 85379; 85610; 85730; 93005; 96361; 96374; 99284; J2405; J7040; 93010

== ENCOUNTER 2021-09-27 09:34 | Emergency (ER) | payer BC ==
[2021-09-27 10:26] VITALS: BP 155/93; PULSE 75
[2021-09-27] MEDS ORDERED: Metoclopramide 10 MG/2 ML SDV IVPUSH ONE (10:49)
[2021-09-27] MEDS ORDERED: LORazepam 2 MG/ML SDV IVPUSH ONE (10:50)
[2021-09-27] MEDS ORDERED: diphenhydrAMINE 50 MG/ML SDV IVPUSH ONE (10:50)
[2021-09-27] MEDS ORDERED: Dextrose 5%-Lactated Ringers 1,000 ML IV SCH (11:00)
== END 2021-09-27 12:29 | disposition home or self-care (01) ==
LOC: JD.ED 09:34
DX: F41.0 Panic disorder [episodic paroxysmal anxiety] (principal); R11.2 Nausea with vomiting, unspecified
CPT/HCPCS: 96374; 96375; 99283; J1200; J2060; J2765; J7121; 99282

== ENCOUNTER 2022-03-05 13:42 | Inpatient (IN) | payer OTHER, BC ==
[2022-03-05] MEDS ORDERED: HYDROmorphone 1 MG/ML Syringe ONE (13:50)
[2022-03-05] MEDS ORDERED: HYDROmorphone 1 MG/ML Syringe IVPUSH ONE ×3 (14:22→16:50)
[2022-03-05 14:42] LABS: ESTIMATED GFR 82 mL/min (>60)
[2022-03-05] MEDS ORDERED: HYDROmorphone 0.5 MG/0.5 ML Syringe IVPUSH ONE (15:20)
[2022-03-05] MEDS ORDERED: Sennosides 8.6 MG Tab PO PRN (17:43)
[2022-03-05] MEDS ORDERED: Docusate Sodium 100 MG Cap PO PRN (17:43)
[2022-03-05] MEDS ORDERED: Naloxone 0.4 MG/ML SDV IVPUSH PRN (17:43)
[2022-03-05] MEDS ORDERED: Bisacodyl 5 MG Tab PO PRN (17:43)
[2022-03-05] MEDS ORDERED: Magnesium Hydroxide 400 MG/5 ML Susp 30 ML Cup PO PRN (17:43)
[2022-03-05] MEDS ORDERED: Cyclobenzaprine 10 MG Tab PO PRN (17:46)
[2022-03-05] MEDS: Ondansetron 4 MG/2 ML SDV IVPUSH PRN (19:14)
[2022-03-05] MEDS ORDERED: LORazepam 0.5 MG Tab PO PRN (19:26)
[2022-03-05] MEDS: Morphine 2 MG/ML SYRINGE IVPUSH PRN (20:54)
[2022-03-06] MEDS: Morphine 2 MG/ML SYRINGE IVPUSH PRN ×6 (00:04→15:22)
[2022-03-06] MEDS ORDERED: Lidocaine 1% 0 ML ONE (10:07)
[2022-03-06] MEDS ORDERED: Midazolam 1 MG/ML 2 ML SDV ONE ×2 (10:07→11:38)
[2022-03-06] MEDS ORDERED: ceFAZolin 2 GM Vial ONE ×2 (10:07→11:59)
[2022-03-06] MEDS ORDERED: Propofol 200 MG/20 ML SDV ONE ×2 (10:07→11:38)
[2022-03-06] MEDS ORDERED: Dexamethasone 4 MG/ML 5 ML MDV ONE (10:08)
[2022-03-06] MEDS ORDERED: Ondansetron 4 MG/2 ML SDV ONE (10:08)
[2022-03-06] MEDS ORDERED: Bupivacaine 0.25% 10 ML SDV ONE (11:27)
[2022-03-06] MEDS ORDERED: fentaNYL 100 MCG/2 ML SDV ONE ×2 (11:38→12:15)
[2022-03-06] MEDS ORDERED: Lidocaine 1% 4 ML ONE (12:33)
[2022-03-06] MEDS ORDERED: Ondansetron 4 MG/2 ML SDV IVPUSH PRN (13:33)
[2022-03-06] MEDS ORDERED: fentaNYL 100 MCG/2 ML SDV IVPUSH PRN (13:33)
[2022-03-06] MEDS ORDERED: HYDROmorphone 0.5 MG/0.5 ML Syringe IVPUSH PRN (13:33)
[2022-03-06] MEDS: Ondansetron 4 MG/2 ML SDV IVPUSH PRN (15:22)
[2022-03-06] MEDS: oxyCODONE 5 MG Tab PO PRN ×2 (18:23→22:16)
[2022-03-07] MEDS: Morphine 2 MG/ML SYRINGE IVPUSH PRN ×2 (00:32→08:21)
[2022-03-07] MEDS: oxyCODONE 5 MG Tab PO PRN ×3 (02:10→10:27)
[2022-03-07 09:48] VITALS: BP 135/93; PULSE 66
== END 2022-03-07 12:20 | disposition home or self-care (01) | DRG 494 ==
LOC: JD.ED 13:42 → JD.MS 17:06
PROVIDERS: ADMIT Orthopaedic Surgery; ATTEND Orthopaedic Surgery
PROC: 0QSH04Z Reposition Left Tibia with Internal Fixation Device, Open Approach (ICD-10-PCS; principal; 2022-03-06)
DX: S82.202A Unspecified fracture of shaft of left tibia, initial encounter for closed fracture (principal); S82.402A Unspecified fracture of shaft of left fibula, initial encounter for closed fracture; F41.9 Anxiety disorder, unspecified; Z87.891 Personal history of nicotine dependence; W22.8XXA Striking against or struck by other objects, initial encounter
CPT/HCPCS: 01392; 29505; 29515; 36415; 73552-50; 735525026; 735902650; 73590-50; 73620-26-LT; 73620-LT; 76000; 76000-26; 80053; 81003; 85025; 87641; 96374; 96376; 97110-GP; 97116-GP; 97161-GP; 99284; 99285-25; A9270-GY; C1713; C1776; J0690; J1100; J1170; J2250; J2270; J2405; J2704; J3010; J3490

== ENCOUNTER 2023-07-10 09:04 | Emergency (ER) | payer BC ==
[2023-07-10 09:16] VITALS: PULSE 80
[2023-07-10] MEDS ORDERED: Ondansetron 4 MG Tab.DIS PO ONE (09:23)
[2023-07-10 10:06] LABS: CORONAVIRUS COVID-19 NAA NEGATIVE (NEGATIVE); INFLUENZA A NAA POSITIVE (NEGATIVE); RESPIRATORY SYNCYTIAL VIR NAA NEGATIVE (NEGATIVE)
[2023-07-10] MEDS ORDERED: Metoclopramide 10 MG/2 ML SDV IVPUSH ONE (10:28)
[2023-07-10] MEDS ORDERED: Sodium Chloride 0.9% 1,000 ML IV ONE (10:28)
[2023-07-10] MEDS ORDERED: Sodium Chloride 0.9% 10 ML Syringe FLUSH PRN (10:28)
[2023-07-10 12:24] VITALS: BP 120/61
== END 2023-07-10 12:17 | disposition home or self-care (01) ==
LOC: JD.ED 09:04
DX: J10.1 Influenza due to other identified influenza virus with other respiratory manifestations (principal); R11.14 Bilious vomiting
CPT/HCPCS: 0241U; 87651; 96361; 96374; 99284; A9270; J2765; J7030

== ENCOUNTER 2023-07-12 04:18 | Emergency (ER) | payer BC ==
[2023-07-12 04:30] VITALS: PULSE 70
[2023-07-12 04:43] LABS: BASOPHILS PERCENT AUTO 0.3 % (0.0-1.0); EOSINOPHILS ABSOLUTE AUTO 0.1 K/mm3 (0.0-0.4); HEMATOCRIT 40.8 % (42.0-52.0); HEMOGLOBIN 14.2 gm/dl (14.0-18.0); IMMATURE GRAN ABSOLUTE AUTO 0.02 K/mm3 (0.00-0.05); IMMATURE GRAN PERCENT AUTO 0.3 % (0.0-0.4); LYMPHOCYTES ABSOLUTE AUTO 1.5 K/mm3 (1.0-4.8); LYMPHOCYTES PERCENT AUTO 24.6 % (24.0-44.0); MEAN CORPUSCULAR HGB CONC 34.8 g/dl (32.0-36.0); MEAN CORPUSCULAR VOLUME 86.3 fl (83.0-99.0); MONOCYTES ABSOLUTE AUTO 0.9 K/mm3 (0.0-0.8); MONOCYTES PERCENT AUTO 13.8 % (0.0-8.0); NEUTROPHILS ABSOLUTE AUTO 3.6 K/mm3 (1.8-7.7); PLATELET COUNT,PLT 220 K/mm3 (150-400); RED BLOOD CELL COUNT 4.73 M/mm3 (4.52-5.90); WHITE BLOOD CELL COUNT,WBC 6.15 K/mm3 (3.9-11.3)
[2023-07-12] MEDS: Ketorolac 30 MG/ML SDV IVPUSH SCH (04:47)
[2023-07-12] MEDS: Metoclopramide 10 MG/2 ML SDV IVPUSH ONE (04:48)
[2023-07-12] MEDS: diphenhydrAMINE 50 MG/ML SDV IVPUSH ONE (04:48)
[2023-07-12] MEDS: Dextrose 5%-Lactated Ringers 1,000 ML IV SCH ×2 (04:49→05:45)
[2023-07-12] MEDS: HYDROmorphone 0.5 MG/0.5 ML Syringe IVPUSH ONE (04:50)
[2023-07-12 05:09] LABS: ALBUMIN 4.2 g/dl (3.4-5.0); BILIRUBIN TOTAL 0.8 mg/dL (0.2-1.0); BUN/CREATININE RATIO 6.2 (14-18); C-REACTIVE PROTEIN 0.6 mg/dL (<1.0); CALCIUM 9.1 mg/dL (8.5-10.1); CREATININE 1.3 mg/dL (0.7-1.3); EST CRCL DRUG DOSING (CG) 84.47 mL/min; MAGNESIUM 1.8 mg/dL (1.8-2.4); PROTEIN TOTAL,TP 8.3 g/dl (6.4-8.2)
[2023-07-12] MEDS: Potassium Chloride 10 MEQ in Premix Bag 1 BAG IV ONE (05:44)
[2023-07-12 08:20] VITALS: BP 128/75
== END 2023-07-12 08:00 | disposition home or self-care (01) ==
LOC: JD.ED 04:18
DX: R11.2 Nausea with vomiting, unspecified (principal); J10.1 Influenza due to other identified influenza virus with other respiratory manifestations; E87.6 Hypokalemia; E87.20 Acidosis, unspecified; Z79.82 Long term (current) use of aspirin; Z79.899 Other long term (current) drug therapy
CPT/HCPCS: 36415; 80053; 82010; 83605; 83735; 85025; 86140; 96361; 96365; 96375; 99284; J1170; J1200; J1885; J2765; J3480; J7121